=== PATIENT | male | born 1980 | race Hispanic/Latino ===

== ENCOUNTER 2020-08-12 05:52 | Emergency (ER) | payer OTHER ==
[2020-08-12] MEDS ORDERED: CLINDAMYCIN HCL 150 MG CAP ONE (06:27)
== END 2020-08-12 06:36 | disposition home or self-care (01) ==
LOC: EDH 05:52
DX: L03.116 Cellulitis of left lower limb (principal)

== ENCOUNTER 2020-08-22 10:05 | Emergency (ER) | payer OTHER ==
[2020-08-22 10:52] LABS: BASOPHILS % (AUTO) 0.4 % (0.0-5.0); EOSINOPHILS % (AUTO) 2.8 % (0.0-8.0); HEMATOCRIT 43.6 % (42-54); LYMPHOCYTES % (AUTO) 25.9 % (21.0-51.0); MEAN CORPUSCULAR HEMOGLOBIN 32.5 pg (27.0-33.0); MEAN CORPUSCULAR HGB CONC 33.9 g/dL (32.0-36.0); MEAN CORPUSCULAR VOLUME 95.6 fL (79-99); MONOCYTES % (AUTO) 8.2 % (3.0-13.0); NEUTROPHILS % (AUTO) 62.4 % (40.0-77.0); PLATELET COUNT (AUTO) 407 K/uL (130-400); RED BLOOD CELL COUNT(AUTO) 4.56 MIL/uL (4.50-6.20); RED CELL DISTRIBUTION WIDTH 11.7 % (11.0-15.5); WHITE BLOOD COUNT (AUTO) 9.9 K/uL (4.8-10.8)
[2020-08-22 11:05] LABS: ALBUMIN 3.8 g/dL (3.5-5.0); BILIRUBIN,TOTAL 0.3 mg/dL (0.2-1.0); CREATININE 1.3 mg/dL (0.5-1.5); POTASSIUM 4.1 mmol/L (3.5-5.1); TOTAL PROTEIN, SERUM 7.7 g/dL (6.0-8.3)
[2020-08-22] MEDS ORDERED: SODIUM CHLORIDE 0.9% 1000ML 2,000 ML IV ONE (14:44)
[2020-08-22] MEDS ORDERED: KETOROLAC TROMETHAMINE 30MG/ML ONE (14:45)
[2020-08-22 15:03] LABS: ALCOHOL, BLOOD < 3 mg/dL (0-10); URIC ACID 8.5 mg/dL (2.6-7.2)
[2020-08-22] MEDS ORDERED: COLCHICINE 0.6 MG TABLET ONE (15:27)
== END 2020-08-22 16:18 | disposition home or self-care (01) ==
LOC: EDH 10:05
DX: M10.072 Idiopathic gout, left ankle and foot (principal); F10.20 Alcohol dependence, uncomplicated
CPT/HCPCS: 36415; 80053; 83605 ×2; 84550; 85025; 86140; 96361; 96374; 99284; J1885; J7030